=== PATIENT | female | born 1990 ===

== ENCOUNTER 2018-07-03 10:50 | Emergency (ER) | payer OTHER, SELFPAY ==
[2018-07-03 11:13] VITALS: BP 137/85; PULSE 92; RESP 18; TEMP 36.6; O2SAT 100; BMI 19.8
[2018-07-03] MEDS: KETOROLAC 60 MG/2 ML VIAL IM (11:44)
[2018-07-03 12:41] VITALS: BP 113/64; PULSE 72; RESP 14; O2SAT 100
--- NOTE | 2018-07-14 09:48 | ED_ITS ---
HPI - Headache General Chief Complaint: Headache Stated Complaint: constant headache x2days Time Seen by Provider: 07/03/18 11:27 Source: patient Mode of arrival: ambulatory Limitations: no limitations History of Present Illness HPI Narrative: Patient complains of frontal headache for the last 2 days. She has had headaches in the past, but this 1 has not responded to home treatment. Patient denies any nausea vomiting. She denies fevers or neck pain or stiffness. She denies any cough or shortness of breath. No other symptoms of illness. No recent head injury. No one else has headaches at home. No neurologic deficits. No visual changes. No other complaints at this time. She states her headache is a 7/10 currently. Nothing makes it better or worse. Related Data Previous Rx's Medication Instructions Recorded lorazepam 1 mg tablet See Label Instructions PO BEDTIME 03/30/18 PRN #60 tab gabapentin 300 mg capsule 300 mg PO BEDTIME 90 Days #90 cap 04/25/18 bupropion HCl XL 300 mg 24 hr 300 mg PO DAILY 90 Days #90 tab 06/17/18 tablet, extended release lamotrigine 100 mg tablet 100 mg PO DAILY #90 tab 06/17/18 trazodone 50 mg tablet See Label Instructions PO DAILY 06/17/18 #90 tab hydrocodone-acetaminophen 1 tab PO Q6H PRN #7 tab 07/03/18 Allergies Allergy/AdvReac Type Severity Reaction Status Date / Time No Known Drug Allergies Allergy Unverified 06/17/18 14:04 Review of Systems Constitutional Denies chills, Denies fever(s), Reports headache(s), Denies lethargy and Denies weakness Eyes Denies change in vision, Denies eye discharge, Denies irritation and Denies loss of vision ENT Ears, Nose, Mouth, and Throat: Denies change in voice, Reports headache(s), Denies neck pain and Denies sore throat Cardiovascular Denies chest pain, Denies irregular heart rhythm, Denies lightheadedness, Denies palpitations, Denies dyspnea, Denies dyspnea on exertion and Denies orthopnea Respiratory Denies cough, Denies dyspnea, Denies dyspnea on exertion and Denies wheezing Gastrointestinal Gastrointestinal: Denies abdominal pain, Denies change in bowel habits, Denies diarrhea, Denies nausea and Denies vomiting Genitourinary Denies hematuria, Denies flank pain, Denies urinary incontinence and Denies urinary urgency Musculoskeletal Denies neck pain Integumentary/Breasts Denies pruritus, Denies erythema, Denies rash and Denies wounds Neurologic Denies confusion, Reports headache(s), Denies loss of vision and Denies weakness Psychiatric Denies anxiety, Denies confusion, Denies depression, Denies homicidal ideation and Denies suicidal ideation Endocrine Denies palpitations Hematologic/Lymphatic Denies easy bruising Allergic/Immunologic Denies wheezing [facility] Medical History Healthy adult (Acute) Surgical History No pertinent past surgical history (Acute) Social History Smoking Status: Never smoker Social History Smoking Status: Never smoker Exam Initial Vital Signs Initial Vital Signs: Vital Signs Temperature 97.8 F 07/03/18 11:13 Pulse Rate 92 H 07/03/18 11:13 Respiratory Rate 18 07/03/18 11:13 Blood Pressure 137/85 07/03/18 11:13 Pulse Oximetry 100 07/03/18 11:13 Const General: cooperative and well developed Nutritional Appearance: well nourished Orientation: alert, awake, oriented x3 and not confused [facility] Head: normocephalic and atraumatic Ears: external ears normal Nose: external nose normal and No nasal discharge Face and sinus: face symmetric and No dry mucous membranes Mouth: oral mucosae normal and moist mucous membranes Teeth and gingiva: dentition normal Eyes General: appearance normal, both eyes and all related structures Eyelids: eyelids normal Conjunctivae: conjunctivae normal Sclera: sclerae normal Pupils: PERRL EOM: EOM intact bilaterally Neck Neck: normal visual inspection, full ROM, No no meningeal signs, trachea midline , No lymphadenopathy, No midline deformity, No positive Brudzinski's sign and No JVD Lymphatic: No lymphedema Chest Chest: normal inspection of the chest Resp Effort & Inspection: normal respiratory effort, able to speak in complete sentences, no respiratory distress and no use of accessory muscles Auscultation: clear to auscultation bilaterally, no rales, no rhonchi and no wheezes Cardio Rate: regular rate Rhythm: regular rhythm Heart Sounds: no click, no gallops, no murmurs and no rubs Pulses: normal peripheral pulses GI Inspection: non-distended Palpation: soft, no hepatosplenomegaly, No guarding, No pulsatile mass and No tender Back/Spine/Pelvis Back: No CVA tenderness Cervical Spine: cervical ROM normal and No pain with cervical ROM Thoracic/Lumbar Spine: thoracic and lumbar spine normal to inspection Skin General: no rashes or lesions noted, No jaundice and No petechiae Neuro General: alert, oriented x3, gait normal and no focal motor deficits Speech: speech normal Extrem General: full ROM, no clubbing, cyanosis or edema, no pedal edema and no calf tenderness Psych Appearance: well kempt Mental Status: mental status grossly normal Attitude: cooperative Thought Content: normal and suicidality Judgment: judgment good Course Course Narrative: Patient was very well-appearing in the emergency department. I did not find any evidence of meningitis, carbon monoxide poisoning, or potential mass occupying lesion in the history or exam at this time. Patient has been treated symptomatically in the emergency department. We have discussed home management of the symptoms, as well as the usual indications for return. Patient is feeling better and is stable for discharge. Orders Ordered: Discontinued Medications Ketorolac Tromethamine (Toradol) 60 mg IM NOW ONE Stop: 07/03/18 11:39 Last Admin: 07/03/18 11:44 Dose: 60 mg MDM - Headache Medical Records Attestation: I reviewed the patient's medical records. Discharge Plan Departure Patient Disposition: Home Clinical Impression: Headache Discharge Date/Time: 07/03/18 13:02 Interventions: ED Discharge Assessment Last Done: 07/03/18 13:02 Instructions: DI for Migraine, DI for Headache Prescriptions: New hydrocodone-acetaminophen 5-325 mg tablet 1 tab PO Q6H PRN (Reason: pain) Qty: 7 RF: 0 No Action lorazepam 1 mg tablet See Label Instructions PO BEDTIME PRN (Reason: sleep) Qty: 60 RF: 0 lamotrigine 100 mg tablet 100 mg PO DAILY Qty: 90 RF: 0 bupropion HCl 300 mg tablet extended release 24 hr 300 mg PO DAILY 90 Days Qty: 90 RF: 0 trazodone 50 mg tablet See Label Instructions PO DAILY Qty: 90 RF: 0 gabapentin 300 mg capsule 300 mg PO BEDTIME 90 Days Qty: 90 RF: 0 Referrals: Misti Yuan MD [Primary Care Provider] -
== END 2018-07-03 13:02 | disposition home or self-care (01) ==
PROVIDERS: Emergency Provider Emergency Medicine; Family Provider Specialist; PCP Specialist
DX: R51 Headache (principal)
CPT/HCPCS: 99282; 99283; J1885

== ENCOUNTER 2019-10-12 09:22 | Emergency (ER) | payer OTHER, SELFPAY ==
[2019-10-12 09:25] VITALS: BP 144/83; PULSE 100; RESP 13; TEMP 37.1; O2SAT 100
--- NOTE | 2019-10-12 10:26 | PC.NURSE ---
pt is being seen by the eye doctor and was prescribed eye drops. states its not any better. appears like a stye
--- NOTE | 2019-10-12 10:27 | ED_ITS ---
HPI - Eye Problem General Chief complaint: Eye Problems Stated complaint: Rt eye pain Time Seen by Provider: 10/12/19 10:02 Source: patient Mode of arrival: Ambulatory Limitations: no limitations History of Present Illness HPI Narrative: CC: Right eye pain HPI: The patient is a 29-year-old female who comes into the emergency department complaining that she has pain in her right eye. She is also complaining that she has a headache and a lymph node in her submandibular area. She states that she was seen by an senior qa tester yesterday and placed on ofloxacin 1 ophthalmic drops because of a potential infection. She states that she called her senior qa tester and she has been referred to an betting agency manager to be seen tomorrow. She states that her pain and discomfort is 8/10 in nature and is achy. She denies a history of glaucoma and had the pressure in her eye checked yesterday. She denies a history of migraines. She complains that her arm right ear hurts. She has had no loss of vision no double vision no scotomata. She has had no recent nasal drainage sinus drainage or sore throat. She denies any vertigo or dizziness. She has had no chest pain cough shortness of breath or difficulty in breathing. She has had no abdominal pain nausea or vomiting. There has been no diarrhea or urinary symptoms. Related Data Home Medications Medication Instructions Recorded Confirmed cyclobenzaprine 5 mg tablet 5 mg PO BID PRN tab 02/21/19 08/23/19 Previous Rx's Medication Instructions Recorded lamotrigine 100 mg tablet 150 mg PO DAILY #135 tab 06/29/19 lorazepam 1 mg tablet See Rx Instructions PO BEDTIME PRN 06/29/19 #60 tab bupropion HCl 150 mg 24 hr tablet, 150 mg PO QAM #180 tab 08/23/19 extended release ibuprofen 600 mg PO Q6H PRN #14 tab 10/12/19 Allergies Allergy/AdvReac Type Severity Reaction Status Date / Time No Known Drug Allergies Allergy Verified 10/12/19 09:27 Review of Systems Review of Systems Narrative: Her review of systems were all negative except for those mentioned in the history of present illness. Patient History Medical History Healthy adult (Acute) Surgical History No pertinent past surgical history (Acute) Social History Smoking Status: Never smoker Smoking Status: Never smoker alcohol intake frequency: holidays/special occasions only Substance Use Type: does not use Exam Narrative Exam Narrative: PHYSICAL EXAM: CONSTITUTIONAL: Awake, Alert, Oriented, Coherent, Cooperative in NAD. Does not appear toxic or ill. HEAD: AT/NC EENT: PERRL, FROM of her eyes, no discharge, no nystagmus. The patient has no foreign body under her right upper lower eyelid. Over the medial edge of the superior eyelid, right eye she has a small nodule that almost looks like a small bleb/vesicle no other lesions were noted. There was no injection of the bulbar or palpebral conjunctiva. Her anterior chamber was clear. There was no swelling or tenderness erythema or bruising involving either the upper or lower eyelid. There was no tenderness to palpation over the lacrimal duct. The patient complained of of prickly stinging discomfort in the medial canthus. Her puncta and medial canthus ampulla appeared normal without inflamation. The patient had numerous fine eyelashes from the upper and lower lid poking the medial canthus. Fluorescein dye revealed no uptake or pathology over the cornea or sclera. The patient's pain and discomfort was relieved with the eye anesthetic and ketorolac. EARS:No drainage from the ears, Tympanic membranes intact bilaterally, clear EAC NOSE:No epistaxis or nasal drainage MOUTH:Oral mucosa is moist and pink, posterior pharynx is without erythema or exudate. NECK: Supple, no obvious JVD, Trachea is midline without stridor, there is a BB sized nodule/lymph node palpable in the right submandibular area that is firm minimally tender. SPINE: Palpationof the cervical, Thoracic, Lumbar or Sacral spine reveals no gross deformity or tenderness. No CVA tenderness. LUNGS: Clear, symmetrical breath sounds without respiratory distress. HEART: Normal heart tones, regular rhythm and rate without murmur. ABDOMEN: Soft, non-tender, without guarding, rebound, rigidity or palpable mass. NEURO: Awake, alert, oriented, conversive, cranial nerves II-XII are symmetrical , moves all 4 extremities and is ambulatory. Initial Vital Signs Initial Vital Signs: Vital Signs Temperature 98.8 F 10/12/19 09:25 Pulse Rate 100 H 10/12/19 09:25 Respiratory Rate 13 10/12/19 09:25 Blood Pressure 144/83 H 10/12/19 09:25 Pulse Oximetry 100 10/12/19 09:25 Course Course Course Narrative: 1115: No corneal abrasion noted. No excessive erythema. The patient has a small bump that looks like a little blister on the conjunctiva edge of the upper eyelid. The patient is already on ofloxacin ophthalmic drops. There is no bulbar or palpebra conjunctivitis present. The patient has multiple small hairs from the upper and lower eyelid that are irritating the medial canthus. Her headache is better. Her pain and discomfort in the eye completely resolved with ketorolac and tetracaine. There was no corneal abrasion or fluorescein uptake. The patient will be discharged home to be seen in follow-up by the betting agency manager tomorrow. She will be instructed to use ibuprofen 600 mg every 6 hours for pain and discomfort and instill the ketorolac eyedrops for pain and discomfort in her eye. She is to continue the ofloxacin as previously prescribed. Orders Ordered: Discontinued Medications Fluorescein Sodium (Ful-Marga) 1 mg EYE-RIGHT NOW ONE Stop: 10/12/19 10:36 Last Admin: 10/12/19 10:42 Dose: 1 mg Documented by: OJ Ketorolac Tromethamine (Acular 0.5% Ophth) 2 drops EYE-RIGHT NOW ONE Stop: 10/12/19 10:28 Last Admin: 10/12/19 10:43 Dose: 2 drops Documented by: OJ Ketorolac Tromethamine (Toradol) 30 mg IM NOW ONE Stop: 10/12/19 10:28 Last Admin: 10/12/19 10:43 Dose: 30 mg Documented by: OJ Proparacaine HCl (Parcaine 0.5% Ophth Listeh) 1 drops EYE-RIGHT NOW ONE Stop: 10/12/19 10:36 Last Admin: 10/12/19 10:42 Dose: 1 drops Documented by: OJ Vital Signs Vital signs: Vital Signs - 8 hr 10/12/19 11:39 Pulse Rate 86 Blood Pressure 109/64 Pulse Oximetry 100 Discharge Plan Departure Patient Disposition: Home Clinical Impression: Acute eye pain Headache Qualifiers: Headache type: unspecified Headache chronicity pattern: acute headache Intractability: not intractable Qualified Code(s): R51 - Headache Discharge Date/Time: 10/12/19 11:39 Instructions: DI for Eye Pain Activity Restrictions/Additional Instructions: 1. Continue the ofloxacin eyedrops as initiated yesterday. 2. Administer the ketorolac eyedrops as instructed and prescribed. 3. For your headache take ibuprofen 600 mg every 8-6 hours as needed. 4. For definitive care follow-up with the betting agency manager as arranged tomorrow. Prescriptions: New ibuprofen 600 mg tablet 600 mg PO Q6H PRN (Reason: pain) Qty: 14 RF: 0 No Action lamotrigine 100 mg tablet 150 mg PO DAILY Qty: 135 RF: 2 lorazepam 1 mg tablet See Rx Instructions PO BEDTIME PRN (Reason: sleep) Qty: 60 RF: 0 Hold Instructions: Not taking cyclobenzaprine 5 mg tablet 5 mg PO BID PRNRF: 0 bupropion HCl 150 mg tablet extended release 24 hr 150 mg PO QAM Qty: 180 RF: 0 Referrals: Misti Yuan MD [Primary Care Provider] -
[2019-10-12] MEDS: PROPARACAINE 0.5% OPHTH SOL 1 DROPS EYE-RIGHT (10:42)
[2019-10-12] MEDS: FLUORESCEIN 1 MG STRIP EYE-RIGHT (10:42)
[2019-10-12] MEDS: KETOROLAC 0.5% OPHTH DROPS 5 ML 2 DROPS EYE-RIGHT (10:43)
[2019-10-12] MEDS: KETOROLAC 60 MG/2 ML VIAL 30 MG IM (10:43)
[2019-10-12 11:39] VITALS: BP 109/64; PULSE 86; O2SAT 100
== END 2019-10-12 11:39 | disposition home or self-care (01) ==
PROVIDERS: Emergency Provider Emergency Medicine; Family Provider Specialist; PCP Specialist
DX: H57.11 Ocular pain, right eye (principal); R51 Headache
CPT/HCPCS: 96372; 99283; J1885